=== PATIENT | female | born 1945 | race Two or more races ===

== ENCOUNTER 2019-12-16 11:05 | Inpatient (IN) | payer OTHER ==
[~2019-12-16] VITALS: Ht 160 cm; Wt 61.2 kg
[2019-12-24] MEDS ORDERED: METRONIDAZOLE500 MG PO (07:34)
[2019-12-24] MEDS ORDERED: ATIVAN2 M1 PO (07:34)
[2019-12-24] MEDS ORDERED: ATORVASTATIN CA80 MG PO (07:35)
[2019-12-24] MEDS ORDERED: DIOVAN160 M1 PO (07:35)
[2019-12-24] MEDS ORDERED: NABUMETONE500 MG PO (07:35)
[2019-12-24] MEDS ORDERED: DICYCLOMIN10 MG/5 M1 PO (07:36)
[2019-12-24] MEDS ORDERED: CARAFATE1 GM PO (07:36)
[2019-12-24] MEDS ORDERED: CIPRO500 MG PO (07:36)
[2019-12-24] MEDS ORDERED: GEODON60 MG PO (07:36)
[2019-12-28] MEDS ORDERED: LIPITOR PO (09:53)
[2019-12-28] MEDS ORDERED: METOPR PO (09:54)
[2019-12-28] MEDS ORDERED: SYNTHROID PO (09:55)
[2019-12-28] MEDS ORDERED: PLAVIX75 MG PO (10:20)
[2020-01-02] MEDS ORDERED: ATORVASTATIN CA80 MG (10:56)
[2020-01-02] MEDS ORDERED: LOPRESSOR HCT1 EACH PO (10:57)
[2020-01-02] MEDS ORDERED: LEVO-T100 MCG PO (10:58)
[2020-01-02] MEDS ORDERED: DULOXETINE HCL30 MG (11:05)
[2020-01-05] MEDS ORDERED: HYOSCYAMINE0.125 M1 SL (11:00)
[2020-01-05] MEDS ORDERED: OXYC1TAB9 PO (11:00)
[2020-01-05] MEDS ORDERED: INTESTINEX680 M1 PO (11:01)
== END 2020-01-05 12:56 | disposition home or self-care (01) | DRG 331 ==
LOC: EDUNIT# 12-28 09:45 → SURH 01-02 05:47 → O/R 01-02 05:47 → SURH 01-02 07:00
PROVIDERS: ADMIT Surgery; ATTEND Surgery
PROC: 0DJD8ZZ Inspection of Lower Intestinal Tract, Via Natural or Artificial Opening Endoscopic (ICD-10-PCS; 2020-01-02)
PROC: 0DTN4ZZ Resection of Sigmoid Colon, Percutaneous Endoscopic Approach (ICD-10-PCS; principal; 2020-01-02 07:00)
DX: K57.32 Diverticulitis of large intestine without perforation or abscess without bleeding (principal); I10 Essential (primary) hypertension

== ENCOUNTER 2019-12-24 07:22 | Emergency (ER) | payer OTHER ==
[~2019-12-24] VITALS: Ht 160 cm; Wt 88.0 kg
[2019-12-24] MEDS ORDERED: METRONIDAZOLE500 MG PO (07:34)
[2019-12-24] MEDS ORDERED: ATIVAN2 M1 PO (07:34)
[2019-12-24] MEDS ORDERED: ATORVASTATIN CA80 MG PO (07:35)
[2019-12-24] MEDS ORDERED: NABUMETONE500 MG PO (07:35)
[2019-12-24] MEDS ORDERED: DIOVAN160 M1 PO (07:35)
[2019-12-24] MEDS ORDERED: GEODON60 MG PO (07:36)
[2019-12-24] MEDS ORDERED: CARAFATE1 GM PO (07:36)
[2019-12-24] MEDS ORDERED: DICYCLOMIN10 MG/5 M1 PO (07:36)
[2019-12-24] MEDS ORDERED: CIPRO500 MG PO (07:36)
== END 2019-12-24 11:39 | disposition home or self-care (01) ==
LOC: ER 07:22
DX: K52.89 Other specified noninfective gastroenteritis and colitis (principal); N39.0 Urinary tract infection, site not specified

== ENCOUNTER 2020-01-01 10:51 | Emergency (ER) | payer OTHER ==
[~2020-01-01] VITALS: Ht 160 cm; Wt 87.1 kg
[~2020-01-01 10:51] MED LIST: ATIVAN2 M1 PO; ATORVASTATIN CA80 MG PO; CARAFATE1 GM PO; CIPRO500 MG PO; DICYCLOMIN10 MG/5 M1 PO; DIOVAN160 M1 PO; GEODON60 MG PO; LIPITOR PO; METOPR PO; METRONIDAZOLE500 MG PO; NABUMETONE500 MG PO; PLAVIX75 MG PO; SYNTHROID PO
[2020-01-02] MEDS ORDERED: ATORVASTATIN CA80 MG (10:56)
[2020-01-02] MEDS ORDERED: LOPRESSOR HCT1 EACH PO (10:57)
[2020-01-02] MEDS ORDERED: LEVO-T100 MCG PO (10:58)
[2020-01-02] MEDS ORDERED: DULOXETINE HCL30 MG (11:05)
== END 2020-01-01 14:32 | disposition home or self-care (01) ==
LOC: ER 10:51
DX: R10.817 Generalized abdominal tenderness (principal)

== ENCOUNTER 2020-09-01 14:15 | Emergency (ER) | payer OTHER ==
[~2020-09-01] VITALS: Ht 160 cm; Wt 86.2 kg
[~2020-09-01 14:15] MED LIST changes: +ATORVASTATIN CA80 MG; +DULOXETINE HCL30 MG; +HYOSCYAMINE0.125 M1 SL; +INTESTINEX680 M1 PO; +LEVO-T100 MCG PO; +LOPRESSOR HCT1 EACH PO; +OXYC1TAB9 PO
== END 2020-09-01 19:19 | disposition home or self-care (01) ==
LOC: ER 14:15
DX: N39.0 Urinary tract infection, site not specified (principal)